=== PATIENT | female | born 1980 | race Hispanic/Latino ===

== ENCOUNTER 2018-03-30 08:35 | Emergency (ER) | payer BC, SELFPAY ==
[2018-03-30] MEDS ORDERED: Ketorolac Tromethamine 30 MG/ML VIAL ONE (08:48)
[2018-03-30 09:05] LABS: BHCG - Serum Negative (NEGATIVE); Pregs Control Background? CLEAR/WHITE (CLR/WHITE); Pregs Control Bar Appear? YES (CONTROL BAR)
[2018-03-30 09:06] LABS: #Basophils 0.2 thou/uL (0.0-0.2); #Eosinphils 0.1 thou/uL (0.0-0.7); #Lymphocytes 2.6 thou/uL (1.20-3.40); #Monocytes 0.6 thou/uL (0.11-0.59); #Neutrophils 3.2 thou/uL (1.40-6.50); %Basophils 2.7 % (0.0-1.0); %Eosinophils 2.2 % (0.0-10.0); %Lymphocytes 38.7 % (21.0-51.0); %Monocytes 8.6 % (0.0-10.0); %Neutrophils 47.7 % (42.0-75.0); Hemoglobin 14.5 g/dL (12.0-16.0); Mean Corpuscular HGB CONC 35.1 g/dL (32.0-36.0); Mean Corpuscular Hemoglobin 28.9 pg (27.0-31.0); Mean Corpuscular Volume 82.2 fl (81.0-99.0); Platelet Count 308 thou/uL (130-400); Red Blood Cell (RBC) Count 5.03 mill/uL (4.20-5.40); White Blood Cell (WBC) Count 6.6 thou/uL (4.8-10.8)
[2018-03-30 09:15] LABS: ALT (SGPT) 21 U/L (8-55); AST (SGOT) 21 U/L (5-34); Albumin 4.6 g/dL (3.5-5.0); Alkaline Phosphatase 93 U/L (40-150); Anion Gap 17 mmol/L (10-20); BUN (Urea Nitrogen) 13 mg/dL (7.0-18.7); Bilirubin, Total 0.4 mg/dL (0.2-1.2); Calc. Creatinine Clearance 0 mL/min (70-130); Calcium 9.7 mg/dL (7.8-10.44); Carbon Dioxide 22 mmol/L (22-29); Chloride 106 mmol/L (98-107); Estimated GFR-MDRD 87; Globulin 3.7 g/dL (2.4-3.5); Glucose 112 mg/dL (70-105); Lipase 32 U/L (8-78); Potassium 5.3 mmol/L (3.5-5.1); Protein, Total 8.3 g/dL (6.0-8.3); Sodium 140 mmol/L (136-145)
[2018-03-30 09:16] LABS: Bilirubin Negative (Negative); Blood, Urine Negative (Negative); Clarity Hazy (Clear); Glucose, Urine (Dipstick) Negative (Negative); Leukocyte Small (Negative); Nitrite Negative (Negative); Protein, Urine (Dipstick) Trace mg/dL (Neg-Trace); Urobilinogen 0.2 mg/dL (0.2-1.0)
[2018-03-30 09:19] LABS: Bacteria/HPF 2+ HPF (None Seen); RBC/HPF None Seen HPF (0-3)
--- NOTE | 2018-03-30 11:41 | ULT ---
ULTRASOUND ABDOMEN LIMITED: (RIGHT UPPER QUADRANT) Date: 03/30/18 HISTORY: 38-year-old female with right upper quadrant abdominal pain. FINDINGS: Gallbladder: Distended lumen. Normal wall thickness of 2 mm. Large number of gallstones. The larger ones are up to 12 mm in size. No sonographic Lau's sign. Common duct: 4 mm. Liver: Fatty liver. Small area of focal fatty sparing adjacent to the gallbladder. Pancreas: Partially obscured by shadowing from bowel gas. Right kidney: No hydronephrosis. IMPRESSION: 1. Positive for cholelithiasis. 2. Hepatic steatosis. UZIEL Gibson POS: KAMILAH
== END 2018-03-30 10:47 | disposition home or self-care (01) ==
LOC: SCSER 08:35
DX: K80.20 Calculus of gallbladder without cholecystitis without obstruction (principal)
CPT/HCPCS: 76705; 80053; 81003; 81015; 83690; 84703; 85025; 96374; J1885

== ENCOUNTER 2018-04-28 05:04 | Day surgery (SDC) | payer SELFPAY ==
[2018-04-28] MEDS ORDERED: Ketorolac Tromethamine 30 MG/ML VIAL ONE ×2 (05:28→10:49)
[2018-04-28] MEDS ORDERED: Ondansetron ODT 8 MG TAB ONE (05:28)
[2018-04-28 05:40] LABS: #Basophils 0.1 thou/uL (0.0-0.2); #Eosinphils 0.2 thou/uL (0.0-0.7); #Lymphocytes 2.2 thou/uL (1.20-3.40); #Monocytes 0.5 thou/uL (0.11-0.59); #Neutrophils 4.5 thou/uL (1.40-6.50); %Basophils 1.1 % (0.0-1.0); %Eosinophils 3.2 % (0.0-10.0); %Lymphocytes 29.3 % (21.0-51.0); %Monocytes 6.9 % (0.0-10.0); %Neutrophils 59.6 % (42.0-75.0); Hemoglobin 14.5 g/dL (12.0-16.0); Mean Corpuscular HGB CONC 34.7 g/dL (32.0-36.0); Mean Corpuscular Hemoglobin 28.2 pg (27.0-31.0); Mean Corpuscular Volume 81.2 fl (81.0-99.0); Mean Platelet Volume 7.2 fL (7.4-10.4); Platelet Count 306 thou/uL (130-400); RBC Distribution Width 11.7 % (11.5-14.5); Red Blood Cell (RBC) Count 5.14 mill/uL (4.20-5.40); White Blood Cell (WBC) Count 7.5 thou/uL (4.8-10.8)
[2018-04-28 05:53] LABS: ALT (SGPT) 19 U/L (8-55); AST (SGOT) 19 U/L (5-34); Albumin 4.4 g/dL (3.5-5.0); Alkaline Phosphatase 108 U/L (40-150); Anion Gap 16 mmol/L (10-20); BUN (Urea Nitrogen) 15 mg/dL (7.0-18.7); Bilirubin, Total 0.6 mg/dL (0.2-1.2); Calc. Creatinine Clearance 0 mL/min (70-130); Calcium 9.6 mg/dL (7.8-10.44); Carbon Dioxide 22 mmol/L (22-29); Chloride 107 mmol/L (98-107); Estimated GFR-MDRD 84; Globulin 3.9 g/dL (2.4-3.5); Glucose 122 mg/dL (70-105); Lipase 35 U/L (8-78); Potassium 3.6 mmol/L (3.5-5.1); Protein, Total 8.3 g/dL (6.0-8.3); Sodium 141 mmol/L (136-145)
[2018-04-28 05:56] LABS: BHCG - Serum Negative (NEGATIVE); Pregs Control Background? CLEAR/WHITE (CLR/WHITE); Pregs Control Bar Appear? YES (CONTROL BAR)
[2018-04-28] MEDS ORDERED: Promethazine HCl 25 MG/ML VIAL ONE (06:42)
[2018-04-28] MEDS ORDERED: Piperacillin/Tazobactam 3.375 GM VIAL ONE (07:00)
[2018-04-28] MEDS ORDERED: Sodium Chloride 0.9% 100 ML ONE (07:01)
--- NOTE | 2018-04-28 08:17 | ULT ---
RIGHT UPPER QUADRANT ULTRASOUND: Date: 04/28/18 HISTORY: Right upper quadrant pain. FINDINGS: The liver demonstrates increased echogenicity consistent with fatty infiltration of the liver. There are shadowing gallstones with gallbladder measuring 3.0 mm in thickness. There is a tiny amount of pe richolecystic fluid. The common duct measures 4.0 mm in diameter. The right kidney and visualized por tions of the pancreas are unremarkable. A positive sonographic Lau's sign was reported by the retail coordinator. IMPRESSION: 1. Fatty liver. 2. Cholelithiasis with tiny amount of pericholecystic fluid, prominent wall, and positive Lau's s ign. Findings are suspicious for acute cholecystitis. POS: KAMILAH
[2018-04-28] MEDS ORDERED: Ketorolac Tromethamine 30 MG/ML VIAL IVP PRN (08:23)
[2018-04-28] MEDS ORDERED: Acetaminophen 325 MG TAB PO PRN (08:24)
[2018-04-28] MEDS ORDERED: Ondansetron ODT 4 MG TAB PO PRN (08:24)
[2018-04-28] MEDS ORDERED: Ondansetron HCl/PF 4 MG/2 ML Vial IVP PRN ×3 (08:24→15:21)
[2018-04-28 08:47] VITALS: BMI 38.9
[2018-04-28] MEDS ORDERED: Acetaminophen 1,000 MG in Premix Bag 1 BAG IVPB PRN (10:03)
[2018-04-28] MEDS ORDERED: Sodium Chloride 0.9% 1,000 ML IV SCH (10:15)
[2018-04-28] MEDS ORDERED: PROPOFOL 200 MG/20 ML VIAL ONE (10:49)
[2018-04-28] MEDS ORDERED: Glycopyrrolate 0.2 MG/ML 5 ML SYRINGE ONE (10:49)
[2018-04-28] MEDS ORDERED: Lidocaine 1% PF 5 ML VIAL ONE (10:49)
[2018-04-28] MEDS ORDERED: Ondansetron HCl/PF 4 MG/2 ML Vial ONE (10:49)
[2018-04-28] MEDS ORDERED: Dexamethasone 20 MG/5 ML VIAL ONE (10:49)
[2018-04-28] MEDS ORDERED: Levofloxacin 500 mg/D5W 100 ml Premix Bag ONE (12:49)
[2018-04-28] MEDS ORDERED: Fentanyl 250 MCG/5 ML VIAL ONE (13:49)
[2018-04-28] MEDS ORDERED: Midazolam HCl 2 mg/2 ml Vial ONE (13:49)
[2018-04-28] MEDS ORDERED: Bupivacaine/Epinephrine 0.25% 30 ML VIAL ONE (13:55)
[2018-04-28] MEDS ORDERED: HYDROcodone/Acetaminophen 10/325 mg Tablet PO PRN ×2 (14:52)
[2018-04-28] MEDS ORDERED: Dextrose 5% in Water 1,000 ML IV PRN (14:52)
[2018-04-28] MEDS ORDERED: Calcium Carbonate 500 MG ChewTAB PO PRN (14:52)
[2018-04-28] MEDS ORDERED: hydrALAZINE 20 MG/ML VIAL SLOW IVP PRN (14:52)
[2018-04-28] MEDS ORDERED: Mag-Al 1200 mg/1200 mg/30 ML UDCUP PO PRN (14:52)
[2018-04-28] MEDS ORDERED: Promethazine HCl 25 MG/ML VIAL IM PRN ×2 (14:52→15:21)
[2018-04-28] MEDS ORDERED: Dextrose 50% Abboject 50 ML SYRINGE SLOW IVP PRN (14:52)
[2018-04-28] MEDS ORDERED: D5 1/2 NS w/20 mEq KCL 1,000 ML IV SCH (15:00)
[2018-04-28] MEDS ORDERED: Promethazine HCl 25 MG/ML VIAL SLOW IVP PRN (15:21)
[2018-04-28] MEDS ORDERED: Fentanyl 100 MCG/2 ML VIAL ONE (15:25)
[2018-04-28 16:08] VITALS: BP 120/63; TEMP 97.6
--- NOTE | 2018-04-28 18:29 | OP ---
DATE OF SERVICE: 04/28/2018. PREOPERATIVE DIAGNOSIS: Acute cholecystitis. POSTOPERATIVE DIAGNOSIS: Acute cholecystitis. PROCEDURE: Laparoscopic cholecystectomy. SURGEON: Mac Estes M.D. ANESTHESIA: General. ESTIMATED BLOOD LOSS: Minimal. COMPLICATIONS: None. SPECIMEN: Gallbladder. FINDINGS: Acute cholecystitis. PROCEDURE IN DETAIL: The patient was taken to the Operating Room and laid supine on the Operating Ro om table. After general anesthetic was obtained, the abdomen was prepped and draped in a sterile fas hion. A curved incision was made below the umbilicus. Cautery was used to dissect down to the umbili kailyn fascia. Umbilical fascia was incised and held up using a Ivan. The abdominal cavity was enter ed using a Kayce clamp. Holding stitch of Vicryl was placed on each side of the fascia. Dawson troc ar was placed. High-flow pneumoperitoneum was obtained. An upper midline 5-mm port and two right up per quadrant 5-mm ports were placed under direct camera visualization. The gallbladder was retracted from the gallbladder fossa. The peritoneum of the gallbladder was opened anteriorly and posteriorly. The critical view triangle was seen showing only the cystic duct and cystic artery branching from m edial to lateral. There were no other branching structures. Two clips were placed proximally on the cystic duct and one laterally, It was cut using laparoscopic scissors. The cystic artery was taken in the same way. Electrocautery was then used to dissect the gallbladder out of the gallbladder lucinda a. The gallbladder was placed in an Endo catch bag and brought out through the Dawson. There was no bleeding or bile in the liver bed. The cystic duct stump and cystic artery stump were intact withou t evidence of extravasation or bleeding. All port sites were infiltrated using local anesthesia. Al l ports were removed under camera visualization. Pneumoperitoneum was let down. The Vicryl was used to close the fascial defect below the umbilicus. All incisions were irrigated and closed using 4-0 Monocryl and DermaBond. The patient was en route to Recovery in stable condition. All instrument co unts, needle counts and lap counts were correct.
[2018-04-28] MEDS ORDERED: Famotidine 20 MG TAB PO SCH (21:00)
[2018-04-28] MEDS ORDERED: Famotidine/PF 20 mg/2ml Vial SLOW IVP SCH (21:00)
== END 2018-04-28 19:18 | disposition home or self-care (01) ==
LOC: SCSER 05:04 → SDC 06:45 → 2SW 07:00 → SDC 07:45 → 2SW 19:18 → SDC 19:18
PROVIDERS: ATTEND Surgery
PROC: 0FT44ZZ Resection of Gallbladder, Percutaneous Endoscopic Approach (ICD-10-PCS; principal; 2018-04-28)
DX: K80.12 Calculus of gallbladder with acute and chronic cholecystitis without obstruction (principal)
CPT/HCPCS: 76705; 80053; 83690; 84703; 85025; 88304; 96365; 96374; 96375; J1100; J1885; J1956; J2001; J2250; J2405; J2543; J2550; J2704; J3010; J7050; S0028

== ENCOUNTER 2022-03-19 08:43 | Outpatient (CLI) | payer OTHER | END 2022-03-19 08:44 | disposition home or self-care (01) | LOC: BICMAMMO 08:43 | PROVIDERS: ATTEND Internal Medicine Hematology & Oncology | DX: Z13.820 Encounter for screening for osteoporosis (principal); Z78.0 Asymptomatic menopausal state | CPT/HCPCS: 77080 ==